=== PATIENT | male | born 1965 | race Caucasian/White ===

== ENCOUNTER 2016-07-19 07:02 | Day surgery (SDC) | payer OTHER ==
[~2016-07-19 07:02] MED LIST: ALLOPURINOL100 MG PO; DOCUSATE SODIU250 MG PO; FENOFIBRATE145 MG PO; LIPITOR40 MG PO; METAMUCIL EQUIV1 PKT PO; NORCO1 TA1 PO
--- NOTE | 2016-07-19 10:20 | Provider's Discharge Care Plan ---
Problem, Goal, Plan Problem List 1. [id number]
--- NOTE | 2016-07-19 10:20 | Provider's Discharge Care Plan ---
Problem, Goal, Plan Problem List 1. [id number]
--- NOTE | 2016-07-19 10:55 | OPERATIVE REPORT ---
DATE OF SURGERY: 07/19/2016 SURGEON: Massimo Perez MD PREOPERATIVE DIAGNOSIS: 1. Anal fistula POSTOPERATIVE DIAGNOSIS: 1. Anal fistula PROCEDURE PERFORMED: 1. Plug repair of anal fistula ANESTHESIA: General. INDICATIONS: The patient is a 51-year-old man with a high fistula, treated with drainage of abscess and seton placement. SURGICAL TECHNIQUE: The patient was taken to the operating room, where a general anesthetic was administered and the patient was placed in high lithotomy position. The Seton done was untied and the internal side was tied to the tip of the cleaning brush apparatus that came with a [employer] fistula plug system. The brush was pulled back and forth through the fistula tract multiple times, following which an Angiocath with saline was used to irrigate up the tract. The far end of the brush that exited the internal opening of the fistula was then tied to a suture, placed through the tip of the fistula plug. It was drawn into place with the button seating against the rectal wall. Multiple Maxon sutures were used to sew the fistula button to the wall of the rectum. A single suture was also placed with the tip to the adjoining skin to ensure against premature displacement. There was no ongoing bleeding, and the patient left the operating room in good condition. No intraoperative complications were encountered.
[2016-07-19] MEDS ORDERED: NORCO1 TA1 PO (11:04)
== END 2016-07-19 13:25 | disposition home or self-care (01) ==
LOC: OR SRH 07:02 → SCU SRH 07:06
PROVIDERS: Surgery
PROC: 0DBQ0ZZ Excision of Anus, Open Approach (ICD-10-PCS; principal; 2016-07-19 09:00)
DX: K60.3 Anal fistula (principal)
CPT/HCPCS: 29229; 29240; 50004; 60001; 70002; 80575; 83774; 84343; 85607

== ENCOUNTER 2016-08-10 16:12 | Outpatient (CLI) | payer OTHER ==
--- NOTE | 2016-08-10 18:23 | DIAGNOSTIC IMAGING REPORT ---
PROCEDURE: US VENOUS - RIGHT EXT INDICATION: RT LEG VARICOSE VEINS TECHNIQUE: Color Doppler duplex imaging without and with compression. COMPARISON: Comparison made to venous ultrasound study on 02/25/2015. FINDINGS: There is valvular incompetence in the right common femoral vein (12 mm diameter), and proximal right superficial femoral vein (9 mm diameter). There is valvular incompetence throughout the right greater saphenous vein (proximal diameter 10 mm, mid diameter 7 mm, distal diameter 9 mm). This is associated with multiple medial calf varices. There are mildly enlarged right inguinal lymph nodes (3.5 cm) IMPRESSION: 1. Valvular incompetence in the right common femoral and superficial femoral veins. 2. Valvular incompetence throughout the right greater saphenous vein. 3. Mild right inguinal adenopathy
== END 2016-08-10 23:00 ==
LOC: US SRH 16:12
DX: I83.91 Asymptomatic varicose veins of right lower extremity (principal); R59.0 Localized enlarged lymph nodes